=== PATIENT | female | born 1975 | race Hispanic/Latino ===

== ENCOUNTER 2020-04-13 08:37 | Emergency (ER) | payer BC ==
--- NOTE | 2020-04-13 09:10 | EDPHYS ---
Physician Documentation [facility] Name: Staci Rasmussen Age: 44 yrs Sex: Female : 1975 Arrival Date: 04/13/2020 Time: 08:40 Bed 19 Private MD: ED Physician Ryan Luna HPI: 04/13 09:45 This 44 yrs old Female presents to ER via Ambulatory with complaints of Back jr8 Pain. 09:45 The patient presents with pain that is acute. The symptoms are located in the right jr8 subscapular area and right mid back. Onset: The symptoms/episode began/occurred acutely, yesterday. The pain does not radiate. Associated signs and symptoms: The patient has no apparent associated signs or symptoms. The problem was sustained from unknown cause. Modifying factors: The patient symptoms are alleviated by nothing, the patient symptoms are aggravated by any movement. Severity of symptoms: At their worst the symptoms were moderate, in the emergency department the symptoms are unchanged. The patient has not experienced similar symptoms in the past. The patient has not recently seen a physician. 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 - Social history:: Smoking status: Patient denies any tobacco usage or history of. ROS: 09:45 Eyes: Negative for injury, pain, redness, and discharge, ENT: Negative for injury, jr8 pain, and discharge, Neck: Negative for injury, pain, and swelling, Cardiovascular: Negative for chest pain, palpitations, and edema, Respiratory: Negative for shortness of breath, cough, wheezing, and pleuritic chest pain, Abdomen/GI: Negative for abdominal pain, nausea, vomiting, diarrhea, and constipation, MS/Extremity: Negative for injury and deformity, Skin: Negative for injury, rash, and discoloration, Neuro: Negative for headache, weakness, numbness, tingling, and seizure. 09:45 Back: Positive for pain at rest, pain with movement, of the right subscapular area and right mid back. Exam: 09:45 Constitutional: This is a well developed, well nourished patient who is awake, alert, jr8 and in no acute distress. Cardiovascular: Regular rate and rhythm with a normal S1 and S2. No gallops, murmurs, or rubs. Normal PMI, no JVD. No pulse deficits. Respiratory: Lungs have equal breath sounds bilaterally, clear to auscultation and percussion. No rales, rhonchi or wheezes noted. No increased work of breathing, no retractions or nasal flaring. Abdomen/GI: Soft, non-tender, with normal bowel sounds. No distension or tympany. No guarding or rebound. No evidence of tenderness throughout. Skin: Warm, dry with normal turgor. Normal color with no rashes, no lesions, and no evidence of cellulitis. MS/ Extremity: Pulses equal, no cyanosis. Neurovascular intact. Full, normal range of motion. Neuro: Awake and alert, GCS 15, oriented to person, place, time, and situation. Cranial nerves II-XII grossly intact. Motor strength 5/5 in all extremities. Sensory grossly intact. Cerebellar exam normal. Normal gait. 09:45 Back: pain, that is moderate, of the right subscapular area and right mid back, ROM is painful, normal spinal alignment noted, CVA tenderness, is absent, vertebral tenderness, is not appreciated, muscle spasm, is appreciated in the right mid back. Vital Signs: 08:46 BP 129 / 80; Pulse 71; Resp 16; Temp 97.1; Pulse Ox 100% ; Weight 108.86 kg; Height 5 bp ft. 2 in. (157.48 cm); 09:25 BP 123 / 73; Pulse 67; Resp 16; Temp 97.5; Pulse Ox 98% ; bp 08:46 Body Mass Index 43.90 (108.86 kg, 157.48 cm) bp MDM: 08:59 Patient medically screened. jr8 09:05 Data reviewed: vital signs, nurses notes, and as a result, I will discharge patient. jr8 Data interpreted: Pulse oximetry: on room air is 100 %. Interpretation: normal. Counseling: I had a detailed discussion with the patient and/or guardian regarding: the historical points, exam findings, and any diagnostic results supporting the discharge/admit diagnosis, the need for outpatient follow up, a family practitioner, to return to the emergency department if symptoms worsen or persist or if there are any questions or concerns that arise at home. ED course: Patient hemodynamically stable. Pain only to mid thoracic region on the paraspinous muscles right side. No abdominal pain or CVA tenderness. Pain with motion. Pain completely reproducible with palpation. Discussed with patient that this is most likely musculoskeletal in nature. Will treat as such. If she worsens or has other symptoms evolve to come back to ED for further evaluation. Otherwise to f/u with PCP. Patient good with this plan . Administered Medications: No medications were administered Disposition: 14:42 Co-signature as Attending Physician, Ryan Luna MD. rn Disposition: 04/13/20 09:10 Discharged to Home. Impression: Muscle spasm of back. - Condition is Stable. - Discharge Instructions: Back Pain, Adult, Muscle Cramps and Spasms, Heat Therapy. - Prescriptions for Ibuprofen 800 mg Oral Tablet - take 1 tablet by ORAL route every 12 hours As needed take with food; 20 tablet. Robaxin 500 mg Oral Tablet - take 2 tablet by ORAL route every 6 hours As needed; 40 tablet. - Medication Reconciliation Form, Thank You Letter, Antibiotic Education, Prescription Opioid Use form. - Follow up: Private Physician; When: 1 week; Reason: Recheck today's complaints, Continuance of care, Re-evaluation by your physician. - Problem is new. - Symptoms have improved. Signatures: Ryan Luna MD MD rn Roszak, Josh, PA PA jr8 Nam Matson, GREG RN bp Corrections: (The following items were deleted from the chart) 09:27 09:10 04/13/2020 09:10 Discharged to Home. Impression: Muscle spasm of back. Condition bp is Stable. Forms are Medication Reconciliation Form, Thank You Letter, Antibiotic Education, Prescription Opioid Use. Follow up: Private Physician; When: 1 week; Reason: Recheck today's complaints, Continuance of care, Re-evaluation by your physician. Problem is new. Symptoms have improved. jr8
--- NOTE | 2020-04-13 09:10 | ER ---
Nurse's Notes [facility] Name: Staci Rasmussen Age: 44 yrs Sex: Female : 1975 Arrival Date: 04/13/2020 Time: 08:40 Bed 19 Private MD: Diagnosis: Muscle spasm of back Presentation: 04/13 08:46 Chief complaint: Patient states: R SCAPULAR PAIN x1 DAY. Coronavirus screen: At this bp time, the client does not indicate any symptoms associated with coronavirus-19. Ebola Screen: No symptoms or risks identified at this time. Initial Sepsis Screen: Does the patient meet any 2 criteria? No. Patient's initial sepsis screen is negative. Does the patient have a suspected source of infection? No. Patient's initial sepsis screen is negative. Risk Assessment: Do you want to hurt yourself or someone else? Patient reports no desire to harm self or others. Note DENIES TRAUMA. Onset of symptoms is unknown. 08:46 Method Of Arrival: Ambulatory bp 08:46 Acuity: ELIZABETH 5 bp Triage Assessment: 08:48 General: Appears in no apparent distress. uncomfortable, obese, Behavior is bp cooperative, appropriate for age, anxious. Pain: Complains of pain in right scapular area. EENT: No deficits noted. Neuro: No deficits noted. Cardiovascular: No deficits noted. Respiratory: No deficits noted. GI: No signs and/or symptoms were reported involving the gastrointestinal system. : No signs and/or symptoms were reported regarding the genitourinary system. Derm: No deficits noted. Musculoskeletal: Circulation, motion, and sensation intact. Range of motion: intact in all extremities. 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 - Social history:: Smoking status: Patient denies any tobacco usage or history of. Screenin:49 Abuse screen: Denies threats or abuse. Denies injuries from another. Nutritional bp screening: No deficits noted. Tuberculosis screening: No symptoms or risk factors identified. Fall Risk None identified. Assessment: 08:49 General: SEE TRIAGE NOTE. Neuro: Level of Consciousness is awake, alert, obeys bp commands, Oriented to person, place, time, situation, Appropriate for age Moves all extremities. Full function. 09:25 Reassessment: PT D/C HOME AMBULATORY, DX WITH MUSCLE SPASM. bp Vital Signs: 08:46 BP 129 / 80; Pulse 71; Resp 16; Temp 97.1; Pulse Ox 100% ; Weight 108.86 kg; Height 5 bp ft. 2 in. (157.48 cm); 09:25 BP 123 / 73; Pulse 67; Resp 16; Temp 97.5; Pulse Ox 98% ; bp 08:46 Body Mass Index 43.90 (108.86 kg, 157.48 cm) bp ED Course: 08:40 Patient arrived in ED. ag5 08:41 Nam Matson, RN is Primary Nurse. bp 08:47 Triage completed. bp 08:48 Arm band placed on. bp 08:49 Patient has correct armband on for positive identification. Bed in low position. Call bp light in reach. Side rails up X2. 08:59 [facility]gett [facility]. jr8 08:59 Ryan Luna MD is Attending Physician. jr8 09:25 No provider procedures requiring assistance completed. Patient did not have IV access bp during this emergency room visit. Administered Medications: No medications were administered Outcome: 09:10 Discharge ordered by . jr8 09:25 Discharged to home ambulatory. bp 09:25 Condition: stable 09:25 Discharge instructions given to patient, Instructed on discharge instructions, follow up and referral plans. medication usage, Demonstrated understanding of instructions, follow-up care, medications, Prescriptions given X 2. 09:27 Patient left the ED. bp Signatures: Joao Padgett PA PA jrNam Astorga, RN RN bp YokoCatie ag5
[2020-04-14 19:49] VITALS: BP 123/73; TEMP 97.5; O2SAT 98
== END 2020-04-13 09:27 | disposition home or self-care (01) ==
LOC: ER 08:37
DX: M62.830 Muscle spasm of back (principal)
CPT/HCPCS: 99282